=== PATIENT | male | born 1950 | race Caucasian/White ===

== ENCOUNTER → 2020-01-30 | Outpatient (CLI) | payer OTHER | LOC: SJCVC 14:00 | DX: R00.1 Bradycardia, unspecified (principal); I25.10 Atherosclerotic heart disease of native coronary artery without angina pectoris; I10 Essential (primary) hypertension; E78.5 Hyperlipidemia, unspecified; I65.23 Occlusion and stenosis of bilateral carotid arteries; I49.3 Ventricular premature depolarization; E11.9 Type 2 diabetes mellitus without complications ==

== ENCOUNTER → 2020-08-11 | Outpatient (CLI) | payer OTHER | LOC: SJCVCIMAG 07:43 | PROVIDERS: ATTEND Internal Medicine | DX: I08.8 Other rheumatic multiple valve diseases (principal); I65.23 Occlusion and stenosis of bilateral carotid arteries; I25.10 Atherosclerotic heart disease of native coronary artery without angina pectoris; I10 Essential (primary) hypertension; E78.5 Hyperlipidemia, unspecified; I49.3 Ventricular premature depolarization; E11.9 Type 2 diabetes mellitus without complications; Z79.01 Long term (current) use of anticoagulants; Z79.899 Other long term (current) drug therapy; Z87.891 Personal history of nicotine dependence ==

== ENCOUNTER → 2021-02-21 | Outpatient (CLI) | payer OTHER | LOC: SJCVCIMAG 08:48 | PROVIDERS: ATTEND Internal Medicine | DX: I65.23 Occlusion and stenosis of bilateral carotid arteries (principal); I49.3 Ventricular premature depolarization; I25.10 Atherosclerotic heart disease of native coronary artery without angina pectoris; I10 Essential (primary) hypertension; E78.5 Hyperlipidemia, unspecified; E11.9 Type 2 diabetes mellitus without complications; Z87.891 Personal history of nicotine dependence; Z72.89 Other problems related to lifestyle; Z79.82 Long term (current) use of aspirin; Z79.899 Other long term (current) drug therapy; Z88.8 Allergy status to other drugs, medicaments and biological substances; Z88.1 Allergy status to other antibiotic agents ==

== ENCOUNTER → 2021-08-25 | Outpatient (CLI) | payer OTHER | LOC: SJCVCIMAG 07:25 | PROVIDERS: ATTEND Internal Medicine | DX: I65.23 Occlusion and stenosis of bilateral carotid arteries (principal); R00.1 Bradycardia, unspecified; I25.10 Atherosclerotic heart disease of native coronary artery without angina pectoris; I10 Essential (primary) hypertension; E78.5 Hyperlipidemia, unspecified; I49.3 Ventricular premature depolarization; E11.9 Type 2 diabetes mellitus without complications; Z82.49 Family history of ischemic heart disease and other diseases of the circulatory system; Z88.8 Allergy status to other drugs, medicaments and biological substances; Z79.82 Long term (current) use of aspirin; Z79.899 Other long term (current) drug therapy; Z72.89 Other problems related to lifestyle; Z87.891 Personal history of nicotine dependence ==

== ENCOUNTER → 2021-08-29 | Outpatient (CLI) | payer OTHER | LOC: SJCVC 15:26 | PROVIDERS: ATTEND Nuclear Medicine Nuclear Cardiology | DX: I65.23 Occlusion and stenosis of bilateral carotid arteries (principal); I25.10 Atherosclerotic heart disease of native coronary artery without angina pectoris; I10 Essential (primary) hypertension; E78.5 Hyperlipidemia, unspecified; E11.9 Type 2 diabetes mellitus without complications; Z87.891 Personal history of nicotine dependence; Z72.89 Other problems related to lifestyle; Z79.82 Long term (current) use of aspirin; Z79.899 Other long term (current) drug therapy; Z88.8 Allergy status to other drugs, medicaments and biological substances ==

== ENCOUNTER 2021-09-08 10:22 | Observation (INO) | payer OTHER ==
[~2021-09-08] VITALS: Ht 177.8 cm; Wt 96.2 kg
[2021-09-08] VITALS (7 sets, daily range): BP systolic 128–161; BP diastolic 65–79
[2021-09-08 11:27] LABS: HEMATOCRIT 49.9 % (42.0-52.0); HEMOGLOBIN 16.2 gm/dL (14.0-18.0); MCHC 32.4 g/dL (28.0-37.0); MCV 83.4 fL (80.0-100.0); RBC 5.98 mil/uL (4.50-6.00); RDW 14.3 % (10.5-14.5); WBC 10.2 thou/uL (4.0-11.0)
[2021-09-08 11:32] LABS: CALCIUM 9.8 mg/dL (8.5-10.1); CREATININE 1.2 mg/dL (0.7-1.3); POTASSIUM 4.2 mmol/L (3.5-5.1)
[2021-09-08] MEDS ORDERED: CHILDREN'S ASPI81 M1 PO (11:39)
[2021-09-08] MEDS ORDERED: JARDIANCE25 MG PO (11:41)
[2021-09-08] MEDS ORDERED: AMARYL2 M1 PO (11:43)
[2021-09-08] MEDS ORDERED: QUINAPRIL HCL20 MG PO (11:46)
[2021-09-08] MEDS ORDERED: CRESTOR20 MG PO (11:47)
[2021-09-08] MEDS ORDERED: PLAVIX 75 MG TA75 MG PO (11:48)
[2021-09-08] MEDS ORDERED: SORINE 80 MG TA80 MG PO (11:48)
--- NOTE | 2021-09-08 18:37 | NUR ---
PATIENT UP OUT OF BED AT 1830 AND WALKED TO THE BATHROOM TO VOID. GROIN SITE REMAINS CDI AND PATIENT AMBULATING WELL. PATIENT IS TO DC HOME WITH BY CAR. PATIENT PROGRESSED TOWARD POC.
== END 2021-09-08 18:45 | disposition home or self-care (01) ==
LOC: CATH 10:22 → 2N 13:08
PROVIDERS: ADMIT Nuclear Medicine Nuclear Cardiology; ATTEND Nuclear Medicine Nuclear Cardiology
DX: I65.23 Occlusion and stenosis of bilateral carotid arteries (principal); I25.10 Atherosclerotic heart disease of native coronary artery without angina pectoris; I10 Essential (primary) hypertension; E78.5 Hyperlipidemia, unspecified; E11.9 Type 2 diabetes mellitus without complications; Z98.890 Other specified postprocedural states; Z87.891 Personal history of nicotine dependence; Z88.6 Allergy status to analgesic agent; Z88.5 Allergy status to narcotic agent; Z79.82 Long term (current) use of aspirin; Z79.899 Other long term (current) drug therapy

== ENCOUNTER → 2021-10-11 | Outpatient (CLI) | payer OTHER ==
[~2021-10-11] MED LIST: AMARYL2 M1 PO; ASA81BEC PO; CHILDREN'S ASPI81 M1 PO; CRESTOR20 MG PO; JARDIANCE25 MG PO; PLAVIX 75 MG TA75 MG PO; QUINAPRIL HCL20 MG PO; QUINAPRIL-HCTZ1 EAC1 PO; SORINE 80 MG TA80 MG PO
== END ==
LOC: LAB 09:42
PROVIDERS: ATTEND Student in an Organized Health Care Education/Training Program
DX: Z01.812 Encounter for preprocedural laboratory examination (principal); Z20.822 Contact with and (suspected) exposure to COVID-19

== ENCOUNTER 2021-10-14 06:10 | Inpatient (IN) | payer OTHER ==
[2021-10-14] VITALS (17 sets, daily range): BP systolic 97–144; BP diastolic 53–80
[~2021-10-14] VITALS: Ht 177.8 cm; Wt 96.2 kg
--- NOTE | 2021-10-14 14:06 | NUR ---
PT ARRIVED TO THE UNIT VIA ONE RN AND WATER ANALYST ESCORT AT THE TIME OF ARRIVAL NS WAS RUNNING AT 100 AND CARDENE GTT BAG HANGING BUT NOT RUNNING. PT DID NOT HAVE ANY COMPLAINTS OF PAIN AT THE TIME. PT ONLY EXPRESSED DISCOMFORT AT THE SITE OF THE BROWN. ORDERS ARE PRESENT TO KEEP PT'S HOB >30 AND ALSO MAINTAIN SBP <140. AT THE R CARTODID/ R FEMORAL SITE NO SIGNS OF HEMATOMA, DRESSINGS BOTH CLEAR/DRY/INTACT. BLOOD SUGAR NORMAL AT TIME OF ARRIVAL. RN HANDED OFF PATIENT TO YADIRA SALDIVAR FOR COMPLETE CARE AT 1330
[2021-10-15] VITALS (15 sets, daily range): BP systolic 95–108; BP diastolic 45–67
--- NOTE | 2021-10-15 06:00 | NUR ---
PT AWAKE AND ALERT. A VERY DELIGHTFUL GENTLEMAN. VSS SINUS RHYTHM. LUNGS CLEAR AND DIMINISHED BILAT. RIGHT NECK AND RIGHT GROIN DRESSINGS DRY AND INTACT. 750 CC UO THIS SHIFT. PULSES INTACT. PT ANXIOUS TO GO HOME TODAY PROGRESSING TOWARD GOALS. WILL CONT TO MONITOR
[2021-10-15 06:03] LABS: HEMATOCRIT 38.6 % (42.0-52.0); HEMOGLOBIN 12.4 gm/dL (14.0-18.0); MCH 26.8 pg (26.0-34.0); MCHC 32.1 g/dL (28.0-37.0); MCV 83.7 fL (80.0-100.0); RBC 4.61 mil/uL (4.50-6.00); RDW 14.3 % (10.5-14.5); WBC 13.8 thou/uL (4.0-11.0)
[2021-10-15 06:21] LABS: CALCIUM 7.9 mg/dL (8.5-10.1); POTASSIUM 4.2 mmol/L (3.5-5.1)
--- NOTE | 2021-10-19 12:37 | O ---
[facility] [place] [address] [address] OPERATIVE REPORT Name: BINTA KIRK Room #: 248-P DIS IN M.R.#: [id number] Admission: 10/14/21 Attend Phys: Rex Rodriguez MD Discharge: 10/15/21 Date of : 48 Report #: [id number] THIS REPORT FOR: cc: Jonh May Damon DO Forman,Rex Jane MD ~ DATE OF SERVICE: 10/14/2021 PREOPERATIVE DIAGNOSIS: Right carotid artery stenosis. POSTOPERATIVE DIAGNOSIS: Right carotid artery stenosis. OPERATION: Transcarotid arterial revascularization, right. SURGEON: Dr. Rex Rodriguez and Dr. Drake Rivera. ANESTHESIA: General. INDICATIONS: The patient is a 71-year-old with a 95% right internal carotid stenosis. Left side has a trivial disease. FINDINGS AND TECHNIQUE: After general anesthesia was established, a low neck incision was made on the right side. The sternal and clavicular heads of the sternocleidomastoid were and the common carotid was identified and controlled. A pursestring suture was placed into the common carotid. Separately, the right femoral vein was entered with a vascular needle followed by guidewire and exchange catheter. The longer J-wire was placed and then the venous end of the [address] TCAR AV fistula was placed and secured. A 10,000 units of heparin was given and ACT was checked at 2 minutes. The carotid artery was entered with the vascular needle followed by guidewire and exchange catheter and then the stiff wire was placed so that the arterial end of the TCAR AV fistula could be placed. Fistula was connected and the arterial end was secured in position. When the ACT was satisfactory, antegrade flow was stopped and reversed flow began. An arteriogram was done to demonstrate the internal carotid. The guidewire was placed into the internal carotid and then an arteriogram was done to ascertain position. Predilatation angioplasty was done with a 4 x 30 Cordis balloon. This was followed by placement of a 10 x 40 Enroute stent and then post-dilatation [facility] [address] [place] [address] OPERATIVE REPORT Name: BINTA KIRK Room #: 248-P [facility] IN M.R.#: [id number] Admission: 10/14/21 Attend Phys: Rex Rodriguez MD Discharge: 10/15/21 Date of : 48 Report #: [id number] angioplasty was done with a 5 x 30 Cordis balloon. Two minutes were allowed to elapse and then an arteriogram was taken that showed good position of the stent and good correction of the lesion. With this information, the antegrade flow was reestablished. The AV fistula was dismantled. The arterial end was removed and the suture was tied tightly. A second Prolene suture was placed in the arterial entry site for security and then the venous end was removed and pressure was applied to the groin. A 50 mg of protamine was given to reverse the heparin. When hemostasis was satisfactory, the neck wound was closed in layers. The patient was taken to the recovery area where his neurologic progress was monitored. All counts were reported as correct. <ELECTRONICALLY SIGNED> By: Rex Rodriguez MD 10/19/21 1237 [id number] Rex Rodriguez MD /nt
== END 2021-10-15 12:31 | disposition home or self-care (01) | DRG 35 ==
LOC: PRE → TBA 06:10 → PRE 10:27 → ICU 11:20 → PRE 11:31 → ICU 10-15 12:31
PROVIDERS: ADMIT Surgery Vascular Surgery; ATTEND Surgery Vascular Surgery
PROC: 037K3DZ Dilation of Right Internal Carotid Artery with Intraluminal Device, Percutaneous Approach (ICD-10-PCS; principal; 2021-10-14)
PROC: B3161ZZ Fluoroscopy of Right Internal Carotid Artery using Low Osmolar Contrast (ICD-10-PCS; principal; 2021-10-14)
DX: I65.21 Occlusion and stenosis of right carotid artery (principal); D68.69 Other thrombophilia; I25.10 Atherosclerotic heart disease of native coronary artery without angina pectoris; I10 Essential (primary) hypertension; E78.00 Pure hypercholesterolemia, unspecified; E78.5 Hyperlipidemia, unspecified; E11.51 Type 2 diabetes mellitus with diabetic peripheral angiopathy without gangrene; G47.30 Sleep apnea, unspecified; Z87.891 Personal history of nicotine dependence; Z88.6 Allergy status to analgesic agent; Z88.5 Allergy status to narcotic agent; Z79.899 Other long term (current) drug therapy; Z79.82 Long term (current) use of aspirin; Z79.02 Long term (current) use of antithrombotics/antiplatelets; Z71.6 Tobacco abuse counseling
CPT/HCPCS: 10196; 47375; 48889; 50010; 50386; 50403; 50455; 51301; 52287; 54118; 56524; 56526; 56528; 56531; 65020; 65040